=== PATIENT | female | born 1960 | race African-American/Black ===

== ENCOUNTER 2016-06-02 22:29 | Emergency (ER) | payer BC ==
[~2016-06-02] VITALS: Ht 175.3 cm; Wt 54.4 kg
[2016-06-02 22:39] VITALS: BP 128/78
== END 2016-06-03 02:30 | disposition home or self-care (01) ==
LOC: EDBD → ER 22:31
DX: M25.511 Pain in right shoulder (principal); F17.210 Nicotine dependence, cigarettes, uncomplicated; F41.9 Anxiety disorder, unspecified; Y99.8 Other external cause status; Z88.0 Allergy status to penicillin; W01.0XXA Fall on same level from slipping, tripping and stumbling without subsequent striking against object, initial encounter; Y92.89 Other specified places as the place of occurrence of the external cause; Y93.89 Activity, other specified; F10.20 Alcohol dependence, uncomplicated
CPT/HCPCS: 73030; 99284; A4606; Z7610

== ENCOUNTER 2016-06-03 12:56 | Emergency (ER) | payer BC | END 2016-06-03 19:05 | disposition left against medical advice (07) | LOC: EDBD → ER 13:00 | DX: Z53.21 Procedure and treatment not carried out due to patient leaving prior to being seen by health care provider (principal) ==

== ENCOUNTER 2016-06-03 20:17 | Emergency (ER) | payer BC ==
[~2016-06-03] VITALS: Ht 175.3 cm; Wt 54.4 kg
[2016-06-03 21:03] VITALS: BP 118/85
== END 2016-06-04 03:07 | disposition left against medical advice (07) ==
LOC: EDBD 20:21 → ER 20:21
DX: Z53.21 Procedure and treatment not carried out due to patient leaving prior to being seen by health care provider (principal); F41.9 Anxiety disorder, unspecified
CPT/HCPCS: A4606; Z7610

== ENCOUNTER 2016-08-18 13:44 | Emergency (ER) | payer BC ==
[~2016-08-18] VITALS: Ht 175.3 cm; Wt 58.1 kg
[2016-08-18 13:50] VITALS: BP 127/52
[2016-08-18] MEDS ORDERED: MORPHINE SULFATE INJ 2 MG/ML DISP.SYRIN IV STA (14:27)
[2016-08-18] MEDS ORDERED: IV NS 0.9% 1,000 ML BAG IV ONE (14:30)
--- NOTE | 2016-08-18 14:30 | NUR ---
PT BIB [facility] C/O HEADACHE AND ABD PAIN X2 DAYS, 03/05. DENIES N/V/D. DENIES DYSURIA, HEMATURIA. RESP EVEN UNLABORED. SKIN WARM NONDIAPHORETIC. AMBULATORY WITH STEADY GAIT. NAD NOTED. IN ER BED 12.
--- NOTE | 2016-08-18 14:35 | NUR ---
PT TRANSPORTED TO CT IN STABLE CONDITION VIA WHEELCHAIR
[2016-08-18] MEDS ORDERED: ONDANSETRON HCL/PF - ER 4 MG/2 ML VIAL IV STA (14:46)
--- NOTE | 2016-08-18 15:01 | NUR ---
PT REFUSES IV ACCESS, MORPHINE, AND IVF. REQUESTS PO PAIN MEDICATION. PA NOTIFIED. LAB CALLED FOR DRAW.
[2016-08-18] MEDS ORDERED: ONDANSETRON HCL 4 MG/5 ML SOLUTION PO STA (15:03)
[2016-08-18] MEDS ORDERED: HYDROCODONE/APAP 5/325MG 1 EACH TABLET PO STA (15:03)
[2016-08-18 15:12] LABS: BASOPHILS # (AUTO) 0.1 /CMM (0.0-0.2); BASOPHILS % (AUTO) 0.9 % (0.0-2.0); EOSINOPHILS % (AUTO) 0.1 % (0.0-6.0); HEMATOCRIT 43 % (33-45); HEMOGLOBIN 14.3 g/dL (11.5-14.8); LYMPHOCYTES # (AUTO) 3.7 /CMM (0.8-4.8); LYMPHOCYTES % (AUTO) 37.3 % (20.0-44.0); MEAN CORPUSCULAR HEMOGLOBIN 30 PG (26.0-33.0); MEAN CORPUSCULAR HGB CONC 33 g/dl (31.0-36.0); MEAN CORPUSCULAR VOLUME 89 fL (82-100); MONOCYTES # (AUTO) 0.3 /CMM (0.1-1.30); MONOCYTES % (AUTO) 2.7 % (2.0-12.0); NEUTROPHILS # (AUTO) 5.8 /CMM (1.8-8.9); PLATELET COUNT (AUTO) 278 /CMM (150-450); RDW COEFFICIENT OF VARIATION 13.8 (11.5-15.0); RED BLOOD CELL COUNT(AUTO) 4.86 MIL/uL (4.0-5.2); WHITE BLOOD COUNT (AUTO) 9.9 K/uL (4.3-11.0)
[2016-08-18] MEDS ORDERED: HYDROCODONE/APAP 5/325MG 1 EACH TABLET ONE (15:16)
[2016-08-18 15:20] LABS: CALCIUM, SERUM 9.1 mg/dL (8.5-10.1); POTASSIUM 3.9 mmol/L (3.5-5.1)
[2016-08-18 15:26] LABS: ALBUMIN 4.1 g/dL (3.4-5.0); BILIRUBIN,DIRECT 0.1 mg/dL (0.0-0.2); BILIRUBIN,TOTAL 0.3 mg/dL (0.2-1.0); TOTAL PROTEIN, SERUM 8.1 g/dL (6.4-8.2)
[2016-08-18 15:31] LABS: APPEARANCE,URINE Clear (CLEAR); BILIRUBIN,URINE Negative (NEGATIVE); BLOOD, URINE Trace-intact Ery/uL (NEGATIVE); COLOR,URINE Yellow (YELLOW); KETONES,URINE Negative (NEGATIVE); LEUKOCYTE ESTERASE ,URINE Negative (NEGATIVE); NITRITE, URINE Negative (NEGATIVE); PROTEIN,URINE Trace mg/dl (NEGATIVE); UGLUCOSE Negative (NEGATIVE); UROBILINOGEN,URINE 0.2 EU/dL (0.2)
[2016-08-18 15:35] LABS: PREGNANCY TEST URINE QUAL NEGATIVE (NEGATIVE)
[2016-08-18 16:04] LABS: ADD URINE CULTURE NO; BACTERIA,URINE Rare /HPF (None Seen); RBC,URINE 0-2 /HPF (0-2); SQUAMOUS EPITHELIAL CELL,UR Rare /HPF (None Seen); WBC,URINE 0-2 /HPF (0-3)
--- NOTE | 2016-08-18 16:13 | NUR ---
PT ELOPED FROM FACILITY. MD NOTIFIED. UNABLE TO GIVE DISCHARGE INSTRUCTIONS OR PRESCRIPTIONS.
== END 2016-08-18 16:36 | disposition left against medical advice (07) ==
LOC: ER 13:46
DX: R51 Headache (principal); R10.9 Unspecified abdominal pain; F41.9 Anxiety disorder, unspecified; G43.909 Migraine, unspecified, not intractable, without status migrainosus; F17.200 Nicotine dependence, unspecified, uncomplicated; F10.20 Alcohol dependence, uncomplicated; Z88.0 Allergy status to penicillin; Z88.2 Allergy status to sulfonamides
CPT/HCPCS: 36415; 70450; 74176; 80048; 80076; 81001; 83690; 84703; 85025; 99285; A4606; Z7610; 81000-TC

== ENCOUNTER 2016-08-20 04:50 | Emergency (ER) | payer BC ==
--- NOTE | 2016-08-20 05:30 | NUR ---
CALLED FOR TRIAGE X2; NO ANSWER. WILL CHECK BACK LATER.
--- NOTE | 2016-08-20 06:37 | NUR ---
CALLED IN FOR TRIAGE; INFORMED PT LEFT.
== END 2016-08-20 06:39 | disposition left against medical advice (07) ==
LOC: ER 04:52
DX: Z53.21 Procedure and treatment not carried out due to patient leaving prior to being seen by health care provider (principal)